=== PATIENT | male | born 2000 | race Caucasian/White ===

== ENCOUNTER 2022-10-21 10:07 | Inpatient (IN) | payer OTHER, SELFPAY ==
[~2022-10-21] VITALS: Ht 185.4 cm; Wt 65.9 kg
[2022-10-21] MEDS ORDERED: KETO2CR TOP (11:16)
[2022-10-21] MEDS ORDERED: HOME MED LIST COMPLETE! XX SCH (15:50)
[2022-10-22] MEDS ORDERED: KETOCONAZOLE 2% CREAM TOP SCH (09:00)
[2022-10-22] MEDS ORDERED: LORazepam 2 MG TAB PO PRN (12:30)
[2022-10-22] MEDS ORDERED: MAALOX 30 ML SUSP *UDC PO PRN (16:55)
[2022-10-22] MEDS ORDERED: diphenhydrAMINE 25MG CAP PO PRN (16:55)
[2022-10-22] MEDS ORDERED: ACETAMINOPHEN TAB 650MG DOSE (2X325MG) PO PRN (16:55)
[2022-10-22] MEDS ORDERED: traZODone 50 MG TAB PO PRN (16:55)
[2022-10-22] MEDS ORDERED: MOM 30ML SUSPENSION UDC PO PRN (16:55)
[2022-10-22] MEDS ORDERED: IBUPROFEN 400MG TAB PO PRN (16:55)
[2022-10-22 18:48] VITALS: BP 117/64; TEMP 98.6; O2SAT 98
[2022-10-22] MEDS ORDERED: THIAMINE 100 MG TAB PO SCH (21:00)
[2022-10-23 06:42] VITALS: BP 109/63; TEMP 99; O2SAT 98
[2022-10-23] MEDS ORDERED: MULTIVITAMINS/MINERALS THERAP 1 TAB PO SCH (09:00)
[2022-10-23] MEDS ORDERED: FOLIC ACID 1MG TAB PO SCH (09:00)
[2022-10-23] MEDS: KETOCONAZOLE 2% CREAM TOP SCH ×2 (10:36→21:00)
[2022-10-23 16:23] VITALS: BP 113/65; TEMP 97.2; O2SAT 100
[2022-10-23] MEDS ORDERED: MIRTAZAPINE 7.5MG PER 1/2 TABLET PO SCH (21:00)
[2022-10-24 06:36] VITALS: BP 120/71; TEMP 98.3; O2SAT 100
[2022-10-24] MEDS: KETOCONAZOLE 2% CREAM TOP SCH (10:11)
[2022-10-24] MEDS ORDERED: MIRT-10 PO (10:20)
== END 2022-10-24 13:00 | disposition home or self-care (01) | DRG 754 ==
LOC: M ED 10:07 → EDBD 10:07 → M ED INP 10-22 16:51 → M PSY 10-22 18:44
PROVIDERS: ADMIT Student in an Organized Health Care Education/Training Program; ATTEND Student in an Organized Health Care Education/Training Program
DX: F43.21 Adjustment disorder with depressed mood (principal); F32.A Depression, unspecified; F10.20 Alcohol dependence, uncomplicated; R45.851 Suicidal ideations; F17.290 Nicotine dependence, other tobacco product, uncomplicated; J45.909 Unspecified asthma, uncomplicated; Z90.49 Acquired absence of other specified parts of digestive tract; Z71.41 Alcohol abuse counseling and surveillance of alcoholic; Z20.822 Contact with and (suspected) exposure to COVID-19; Z63.0 Problems in relationship with spouse or partner